=== PATIENT | male | born 1990 | race Caucasian/White ===

== ENCOUNTER 2021-11-02 11:30 | Emergency (ER) | payer OTHER, SELFPAY ==
[~2021-11-02] VITALS: Ht 180.3 cm; Wt 92.8 kg
[2021-11-02] MEDS ORDERED: VALT1TAB PO (12:00)
[2021-11-02] MEDS ORDERED: CELE1CAP4 PO (12:00)
[2021-11-02] MEDS ORDERED: OCUF0.25 OP (12:31)
[2021-11-02 13:06] VITALS: BP 176/95
== END 2021-11-02 13:21 | disposition home or self-care (01) ==
LOC: M ED 11:30
DX: S05.02XA Injury of conjunctiva and corneal abrasion without foreign body, left eye, initial encounter (principal); W26.8XXA Contact with other sharp object(s), not elsewhere classified, initial encounter; Z98.890 Other specified postprocedural states; Z79.899 Other long term (current) drug therapy